=== PATIENT | female | born 1970 | race Caucasian/White ===

== ENCOUNTER 2016-09-17 06:14 | Day surgery (SDC) | payer OTHER ==
[~2016-09-17] VITALS: Ht 167.6 cm; Wt 99.4 kg
[~2016-09-17 06:14] MED LIST: AMITRIPTYLINE100 MG PO; AMLODIPINE BESY10 MG PO; CLONAZEPAM1 MG PO; GABAPENTIN600 MG PO; LISINOPRIL40 MG PO; PANTOPRAZOLE SO40 MG PO; PERCOCET1 TA1 PO; VENTOLIN HFA IN
--- NOTE | 2016-09-17 06:42 | NUR ---
PRE OP INSTRUCTIONS GIVEN AND SAFETY ISSUES DISCUSSED PT AND FAMILY HAD QUESTIONS ANSWERED PT CONFIRMED PROCEDURE PT VERIFIED SIGNATURE PT MARKED SITE PT VERY NERVIOUS
[2016-09-17] MEDS ORDERED: PERCOCET1 TA4 PO (09:51)
[2016-09-17] MEDS ORDERED: ZOFRAN4 MG PO (09:52)
--- NOTE | 2016-09-17 09:53 | Provider's Discharge Care Plan ---
Problem, Goal, Plan Problem List 1. Other instability, left ankle Goals: Improve function Instructions: Increase activity level
--- NOTE | 2016-09-17 09:53 | Provider's Discharge Care Plan ---
Problem, Goal, Plan Problem List 1. Other instability, left ankle Goals: Improve function Instructions: Increase activity level
--- NOTE | 2016-09-17 11:18 | NUR ---
PT RETURNED FROM PACU LEFT FOOT ELEVATED ICE TO FOOT DRESSING DRY AND INTACT CAP REFILL LESS THAN 3 SEC PT C/O DISCOMFORT CRACKERS GIVEN THEN PERCOCET
--- NOTE | 2016-09-17 12:06 | NUR ---
PT STATED PAIN LESS AFTER MED UP TO BR WITH USE OF WALKER. STATED DIDN'T WANT TO PUT ANY WEIGHT ON FOOT. PT VOIDED SPONTANOUSLY ASKING TO GO HOME REVIEWED DISCHARGE INSTRUCTIONS VERBAL AND WRITTEN PT AND NIECE EXPRESSED UNDERSTANDING PT RECITED BACK WHAT TO TO WITH DRESSING PT DISCHARGED PER WC ACCOMPANIED BY FATHER AND NIECE
[2016-09-17 12:42] VITALS: BP 153/93
== END 2016-09-17 12:09 | disposition home or self-care (01) ==
LOC: SCU SRH 06:14 → OR SRH 06:14
PROVIDERS: Podiatrist
PROC: 0LMT0ZZ Reattachment of Left Ankle Tendon, Open Approach (ICD-10-PCS; principal; 2016-09-17 07:30)
PROC: 0SBG4ZZ Excision of Left Ankle Joint, Percutaneous Endoscopic Approach (ICD-10-PCS; principal; 2016-09-17 07:30)
PROC: 0MUR0JZ Supplement Left Ankle Bursa and Ligament with Synthetic Substitute, Open Approach (ICD-10-PCS; principal; 2016-09-17 07:30)
DX: M25.372 Other instability, left ankle (principal); M24.472 Recurrent dislocation, left ankle; M65.872 Other synovitis and tenosynovitis, left ankle and foot; I10 Essential (primary) hypertension
CPT/HCPCS: 29229; 29240; 50002; 60001; 70002; 80144; 80212; 80360; 80575; 83316; 83322; 83420; 83612; 83860; 84038; 84522; 90074; 90100; 95059

== ENCOUNTER 2016-09-23 08:49 | Emergency (ER) | payer OTHER ==
[~2016-09-23 08:49] MED LIST changes: +PERCOCET1 TA4 PO; +ZOFRAN4 MG PO
--- NOTE | 2016-09-23 10:50 | ED ORDER SUMMARY ---
..... Patient: JOSE CARDOZA OrderSheet [facility] VisitID: [id number] [place] [address] 45y, F Registration Date/Time: 09/23/2016 ORDER SHEET Weight: 100.2 kg (stated) Allergies: Iodine, Penicillins, Tramadol GENERAL ORDERS: CBC w Diff Urgent (:09/23/2016 Rosalba Peters) (Ack 9:27 AMcQuoid ER Tech1) (10:32 AMcQuoid ER Tech1) CMP Urgent (:09/23/2016 Rosalba Peters) (Ack 9:27 AMcQuoid ER Tech1) (10:32 AMcQuoid ER Tech1) UA-Culture if indicated Urgent (09/23/2016 Rosalba Peters) (Ack 9:27 AMcQuoid ER Tech1) (10:32 AMcQuoid ER Tech1) D-Dimer Urgent (:09/23/2016 Rosalba Peters) (Ack 9:27 AMcQuoid ER Tech1) (10:32 AMcQuoid ER Tech1) Urine Urgent (:09/23/2016 Rosalba Peters) (Ack 9:27 AMcQuoid ER Tech1) (10:32 AMcQuoid ER Tech1) Urine Drug Screen Urgent (:09/23/2016 Rosalba Peters) (Ack 9:27 AMcQuoid ER Tech1) (10:32 AMcQuoid ER Tech1) MEDICATION ORDERS: IV FLUIDS: Toradol IV 30 mg (NOW) (:09/23/2016 Rosalba Peters) (Ack 9:34 Bhavik R.N.) (9:49 Bhavik R.N.) IV Saline Lock (09/23/2016 Rosalba Peters) (Ack 9:34 Bhavik R.N.) (9:49 Bhavik R.N.) ORDER SHEET NOTES: [Electronically signed by Shaheen Elias Dr. (11:59 09/23/2016)] [Electronically signed by Nadja Azul R.N. (22:58 09/24/2016)] [Electronically locked/signed by Nadja Azul R.N. (22:58 09/24/2016)]
--- NOTE | 2016-09-23 10:50 | ED NURSING NOTES ---
Clinical Report - Nurses [place] [address] [place] [address] 09/23/2016 8:51 [id number] Triage time 08:52. Acuity: LEVEL 3. Chief Complaint: INJURY TO LEFT ANKLE. Alert. No acute distress. VITOR COMA SCORE: [place] Coma Scale: 15- eyes open spontaneously (4); best verbal response- oriented x 4 (5); best motor response- obeys commands (6). --09:05 Julita Hoffmann R.N. 08:52 09/23/16. BP: 123/74. HR: 75. RR: 16. O2 saturation: 99% on room air. Temp: 98 F. Pain level now: 11/14. --09:05 Julita Hoffmann R.N. Weight: 100.2 kg stated. Height/Length: 66 inches Per Patient. BMI: 35.7. --08:57 Julita Hoffmann R.N. Medications Oxycodone-Acetaminophen Oral (Tablet 10-325 mg) 1 tablet, as needed. --09:00 Julita Hoffmann R.N. Ondansetron Oral (Tablet Dispersible 8 mg), as needed. --09:00 Julita Hoffmann R.N. Lisinopril Oral 40 mg, daily. --09:01 Julita Hoffmann R.N. AmLODIPine Besylate Oral 10 mg, daily. --09:01 Julita Hoffmann R.N. Amitriptyline HCl Oral 100 mg, at bedtime. --09:01 Julita Hoffmann R.N. ClonazePAM Oral 1 mg, daily. --09:02 Julita Hoffmann R.N. Gabapentin Oral (Tablet 600 mg) 4 tabs, daily. --09:02 Julita Hoffmann R.N. Pantoprazole Sodium Oral 40 mg, daily. --09:03 Julita Hoffmann R.N. Albuterol Sulfate HFA Inhalation, as needed. --09:04 Julita Hoffmann R.N. Medication/allergy information source: other. --09:05 Julita Hoffmann R.N. Allergies Iodine. Penicillins. Tramadol. --08:55 Julita Hoffmann R.N. History Arrived by EMS. Historian: patient. Unaccompanied. Primary physician (Adolph Og - surgeon). This occurred today (at 0000). ( recent surgery on that ankle , and fell "a couple" of days ago). ( non wt bearing). 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 PAST MEDICAL HX: The patient has had a hysterectomy. SOCIAL HX: Former smoker. History of drug use: marijuana. No alcohol use. LEARNING NEEDS ASSESSMENT: The learning needs assessment revealed no barriers. FALL RISK ASSESSMENT: Fall risk assessment completed. Risk factors identified include patient history of fall and impairment of mobility. FUNCTIONAL ASSESSMENT: Functional assessment performed: independent with the activities of daily living; uses cane. --09:05 Julita Hoffmann R.N. PROBLEMS: Sprain. Prior Injury, Same Area. Hypokalemia. Substance Abuse. Loss of Vision. Dental Pain. Uterine Cancer. Cervical CA. Heart Disease. Myofascial Strain. Pedal Edema. Immunizations. Chest Pain. Atypical Chest Pain. Mental Illness. Anxiety Reaction. Vertigo. Fall. Contusion. Back Pain. Tetanus Status. Hysterectomy. LNMP - Last Normal Menstrual Period. Multiple Sclerosis. TMJ Syndrome. Fibromyalgia. Congestive Heart Failure. Hypertension. Lupus. --08:56 Julita Hoffmann R.N. ADDITIONAL SURGERIES: Ankle, lt xxxx. Cholecystectomy. . Gallbladder Surgery. Hysterectomy. L ankle. Pyloric Stenosis Surgery. Tubal Ligation. --08:56 Julita Hoffmann R.N. Assessment GENERAL / NEURO / PSYCH: Alert. Oriented X 4. Appears in no acute distress. Patient appears calm and cooperative. RESPIRATORY: Respirations not labored. SKIN: Skin is warm and dry. --09:05 Julita Hoffmann R.N. Interventions ID and allergy band on patient. To treatment room. --09:05 Julita Hoffmann R.N. PHYSICAL ASSESSMENT 09:07 09/23/16. To room via stretcher. GENERAL / NEURO / PSYCH: Oriented X 4. Alert. Appears in no acute distress. EXTREMITIES: The patient was unable to bear weight. Left ankle: tenderness, swelling and erythema. SKIN: Skin is warm and dry. --09:07 Julita Hoffmann R.N. NURSING PROGRESS NOTES 09:08 09/23/16. Call light placed in reach. Side rails up x 1. Bed placed in lowest position. Brakes of bed on. --09:08 Julita Hoffmann R.N. 09:49 09/23/2016 Site #1 started via IV in the right hand with an 20g angiocath, with aseptic technique and good blood return; one attempt. Saline lock flushed with 10 mL saline. --09:49 Julita Hoffmann R.N. 09:49 09/23/2016 Toradol IVP 30 mg given over 2 minute(s) via site #1. Allergies verified and confirmed 5 rights. IV patency established. IV site checked: no pain, redness, or swelling. IV flushed thoroughly pre- and post-medication administration. IVP given by RN. --09:49 Julita Hoffmann R.N. 10:26. Checked patient name and birthdate: patient confirmed urine collected; sample sent to lab. Specimen labeled in the presence of the patient. --10:33 Brittany Mesa, ER Tech1 10:[address] Farfan per MD request. --10:35 Brittany Mesa, ER Tech1. DISPOSITION / DISCHARGE Departure time: 11:35 Sep 23 2016. Condition at departure: improved. Fall risk assessment completed. Risk factors identified include patient impairment of mobility. No learning barriers present. Discharge instructions provided and reviewed with the patient. Reviewed referral to an orthopedic surgeon for followup. Patient verbalized understanding. Written instructions provided in Bengali. The patient was discharged home. She left the Emergency Department ambulatory and via private vehicle. Driving ([employer] link). --11:35 Nadja Azul R.N. Locked/Released at 09/24/2016 22:58 by Nadja Azul R.N.
--- NOTE | 2016-09-23 10:50 | ED ORDER SUMMARY ---
..... Patient: JOSE CARDOZA OrderSheet [facility] VisitID: [id number] [place] [address] 45y, F Registration Date/Time: 09/23/2016 ORDER SHEET Weight: 100.2 kg (stated) Allergies: Iodine, Penicillins, Tramadol GENERAL ORDERS: CBC w Diff Urgent (:09/23/2016 Rosalba Peters) (Ack 9:27 AMcQuoid ER Tech1) (10:32 AMcQuoid ER Tech1) CMP Urgent (:09/23/2016 Rosalba Peters) (Ack 9:27 AMcQuoid ER Tech1) (10:32 AMcQuoid ER Tech1) UA-Culture if indicated Urgent (09/23/2016 Rosalba Peters) (Ack 9:27 AMcQuoid ER Tech1) (10:32 AMcQuoid ER Tech1) D-Dimer Urgent (:09/23/2016 Rosalba Peters) (Ack 9:27 AMcQuoid ER Tech1) (10:32 AMcQuoid ER Tech1) Urine Urgent (:09/23/2016 Rosalba Peters) (Ack 9:27 AMcQuoid ER Tech1) (10:32 AMcQuoid ER Tech1) Urine Drug Screen Urgent (:09/23/2016 Rosalba Peters) (Ack 9:27 AMcQuoid ER Tech1) (10:32 AMcQuoid ER Tech1) MEDICATION ORDERS: IV FLUIDS: Toradol IV 30 mg (NOW) (:09/23/2016 Rosalba Peters) (Ack 9:34 Bhavik R.N.) (9:49 Bhavik R.N.) IV Saline Lock (09/23/2016 Rosalba Peters) (Ack 9:34 Bhavik R.N.) (9:49 Bhavik R.N.) ORDER SHEET NOTES: [Electronically signed by Shaheen Elias Dr. (11:59 09/23/2016)] [Electronically signed by Nadja Azul R.N. (22:58 09/24/2016)] [Electronically locked/signed by Nadja Azul R.N. (22:58 09/24/2016)]
--- NOTE | 2016-09-23 10:50 | ED CLINICAL REPORT ---
Clinical Report - Physicians/Mid Levels [facility] [address] [place] [address] 09/23/2016 8:51 Patient: JOSE CARDOZA Time Seen: 09:05; initial patient contact. Arrived- By ambulance. Historian- patient. HISTORY OF PRESENT ILLNESS Chief Complaint: Injury to the left ankle. The injury happened last night. (post op from L ankle Ssurgery 3 days ago. Supposed to be non-wt bearing and put weight on the L foot last night.). Occurred at home. Patient is experiencing moderate pain. Patient denies injury to the head or neck. REVIEW OF SYSTEMS The patient complains of pain on weight bearing. She has had swelling. No tingling, weakness, numbness, suspected foreign body or skin laceration. No chest pain or palpitations. She has had calf pain and pedal edema. All systems otherwise negative, except as recorded above. PAST HISTORY Sprain. Prior Injury, Same Area. Hypokalemia. Substance Abuse. Loss of Vision. Dental Pain. Uterine Cancer. Cervical CA. Heart Disease. Myofascial Strain. Pedal Edema. Immunizations. Chest Pain. Atypical Chest Pain. Mental Illness. Anxiety Reaction. Vertigo. Fall. Contusion. Back Pain. Hysterectomy. Multiple Sclerosis. TMJ Syndrome. Fibromyalgia. Congestive Heart Failure. Hypertension. Lupus. SURGERIES: Ankle, lt Cholecystectomy. . Gallbladder Surgery. Hysterectomy. L ankle. Pyloric Stenosis Surgery. Tubal Ligation. Medications: Albuterol Sulfate HFA Inhalation, as needed. Pantoprazole Sodium Oral 40 mg, daily. Gabapentin Oral (Tablet 600 mg) 4 tabs, daily. ClonazePAM Oral 1 mg, daily. Amitriptyline HCl Oral 100 mg, at bedtime. AmLODIPine Besylate Oral 10 mg, daily. Lisinopril Oral 40 mg, daily. Ondansetron Oral (Tablet Dispersible 8 mg), as needed. Oxycodone-Acetaminophen Oral (Tablet 10-325 mg) 1 tablet, as needed. Allergies: Iodine. Penicillins. Tramadol. SOCIAL HISTORY Former smoker. History of drug use: marijuana. No alcohol use. ADDITIONAL NOTES The nursing notes have been reviewed. PHYSICAL EXAM Vital Signs: 09/23/2016 08:52 BP: 123/74. HR: 75. RR: 16. O2 saturation: 99%. Temp: 98 F. Pain level now: 10. Have been reviewed as normal. Appearance: Alert. Oriented X3. No acute distress. Skin: Skin warm and dry. Extremities: Left ankle: mild erythema and swelling, moderate tenderness and small ecchymosis localized to the lateral ligaments. Limited ROM secondary to pain (diminished plantar flexion, dorsiflexion, inversion and eversion). Neurovascular intact distally. (surgical wounds intact w/out discharge or erythema.). No deformity. Extremities otherwise negative. Gait: Gait not tested due to pain. Neuro, Vascular and Tendons: Vascular status intact. Sensation intact. Motor intact. Neuro: Oriented X 3. No motor deficit. No sensory deficit. PROGRESS AND PROCEDURES Discussed case with patient's primary care provider, (call returned 10:35 Dr. Lundberg. Ruled out DVT and infection and he agrees nothing else to do and has the same concerns for drug seeking. Also agrees no imaging necessary.). Disposition: Discharged home in good and improved condition. Condition: good. CLINICAL IMPRESSION (Post operative ankle pain: Primary Dx). INSTRUCTIONS Apply ice for 20 minutes four times a day until better. Don't apply ice directly to skin. Wear boot orthosis until released. Elevate affected areas above chest level until released. No weight bearing left leg until released. Prescription Medications: Diclofenac 50 mg tablets: take 1 tablet orally every 8 hours as needed for pain or stiffness. Dispense fifteen (15). No refill. Follow-up: Follow up with your doctor as scheduled. Blood pressure screening was not performed during this visit because the patient has an active diagnosis of hypertension. (Electronically signed by Shaheen Elias Dr. 09/23/2016 11:59)
--- NOTE | 2016-09-23 10:50 | ED NURSING NOTES ---
Clinical Report - Nurses [address] [address] [place] [address] 09/23/2016 8:51 [id number] TRI[facility] Triage time 08:52. Acuity: LEVEL 3. Chief Complaint: INJURY TO LEFT ANKLE. Alert. No acute distress. VITOR COMA SCORE: [place] Coma Scale: 15- eyes open spontaneously (4); best verbal response- oriented x 4 (5); best motor response- obeys commands (6). --09:05 Julita Hoffmann R.N. 08:52 09/23/16. BP: 123/74. HR: 75. RR: 16. O2 saturation: 99% on room air. Temp: 98 F. Pain level now: 11/14. --09:05 Julita Hoffmann R.N. Weight: 100.2 kg stated. Height/Length: 66 inches Per Patient. BMI: 35.7. --08:57 Julita Hoffmann R.N. Medications Oxycodone-Acetaminophen Oral (Tablet 10-325 mg) 1 tablet, as needed. --09:00 Julita Hoffmann R.N. Ondansetron Oral (Tablet Dispersible 8 mg), as needed. --09:00 Julita Hoffmann R.N. Lisinopril Oral 40 mg, daily. --09:01 Julita Hoffmann R.N. AmLODIPine Besylate Oral 10 mg, daily. --09:01 Julita Hoffmann R.N. Amitriptyline HCl Oral 100 mg, at bedtime. --09:01 Julita Hoffmann R.N. ClonazePAM Oral 1 mg, daily. --09:02 Julita Hoffmann R.N. Gabapentin Oral (Tablet 600 mg) 4 tabs, daily. --09:02 Julita Hoffmann R.N. Pantoprazole Sodium Oral 40 mg, daily. --09:03 Julita Hoffmann R.N. Albuterol Sulfate HFA Inhalation, as needed. --09:04 Julita Hoffmann R.N. Medication/allergy information source: other. --09:05 Julita Hoffmann R.N. Allergies Iodine. Penicillins. Tramadol. --08:55 Julita Hoffmann R.N. History Arrived by EMS. Historian: patient. Unaccompanied. Primary physician (Adolph Og - surgeon). This occurred today (at 0000). ( recent surgery on that ankle , and fell "a couple" of days ago). ( non wt bearing). Treatment BELL RINGER: See EMS report. PAST MEDICAL HX: The patient has had a hysterectomy. SOCIAL HX: Former smoker. History of drug use: marijuana. No alcohol use. LEARNING NEEDS ASSESSMENT: The learning needs assessment revealed no barriers. FALL RISK ASSESSMENT: Fall risk assessment completed. Risk factors identified include patient history of fall and impairment of mobility. FUNCTIONAL ASSESSMENT: Functional assessment performed: independent with the activities of daily living; uses cane. --09:05 Julita Hoffmann R.N. PROBLEMS: Sprain. Prior Injury, Same Area. Hypokalemia. Substance Abuse. Loss of Vision. Dental Pain. Uterine Cancer. Cervical CA. Heart Disease. Myofascial Strain. Pedal Edema. Immunizations. Chest Pain. Atypical Chest Pain. Mental Illness. Anxiety Reaction. Vertigo. Fall. Contusion. Back Pain. Tetanus Status. Hysterectomy. LNMP - Last Normal Menstrual Period. Multiple Sclerosis. TMJ Syndrome. Fibromyalgia. Congestive Heart Failure. Hypertension. Lupus. --08:56 Julita Hoffmann R.N. ADDITIONAL SURGERIES: Ankle, lt xxxx. Cholecystectomy. . Gallbladder Surgery. Hysterectomy. L ankle. Pyloric Stenosis Surgery. Tubal Ligation. --08:56 Julita Hoffmann R.N. Assessment GENERAL / NEURO / PSYCH: Alert. Oriented X 4. Appears in no acute distress. Patient appears calm and cooperative. RESPIRATORY: Respirations not labored. SKIN: Skin is warm and dry. --09:05 Julita Hoffmann R.N. Interventions ID and allergy band on patient. To treatment room. --09:05 Julita Hoffmann R.N. PHYSICAL ASSESSMENT 09:07 09/23/16. To room via stretcher. GENERAL / NEURO / PSYCH: Oriented X 4. Alert. Appears in no acute distress. EXTREMITIES: The patient was unable to bear weight. Left ankle: tenderness, swelling and erythema. SKIN: Skin is warm and dry. --09:07 Julita Hoffmann R.N. NURSING PROGRESS NOTES 09:08 09/23/16. Call light placed in reach. Side rails up x 1. Bed placed in lowest position. Brakes of bed on. --09:08 Julita Hoffmann R.N. 09:49 09/23/2016 Site #1 started via IV in the right hand with an 20g angiocath, with aseptic technique and good blood return; one attempt. Saline lock flushed with 10 mL saline. --09:49 Julita Hoffmann R.N. 09:49 09/23/2016 Toradol IVP 30 mg given over 2 minute(s) via site #1. Allergies verified and confirmed 5 rights. IV patency established. IV site checked: no pain, redness, or swelling. IV flushed thoroughly pre- and post-medication administration. IVP given by RN. --09:49 Julita Hoffmann R.N. 10:26. Checked patient name and birthdate: patient confirmed urine collected; sample sent to lab. Specimen labeled in the presence of the patient. --10:33 Brittany Mesa, ER Tech1 10:[address] Farfan per MD request. --10:35 Brittany Mesa, ER Tech1. DISPOSITION / DISCHARGE Departure time: 11:35 Sep 23 2016. Condition at departure: improved. Fall risk assessment completed. Risk factors identified include patient impairment of mobility. No learning barriers present. Discharge instructions provided and reviewed with the patient. Reviewed referral to an orthopedic surgeon for followup. Patient verbalized understanding. Written instructions provided in Maori. The patient was discharged home. She left the Emergency Department ambulatory and via private vehicle. Driving ([employer] link). --11:35 Nadja Azul R.N. Locked/Released at 09/24/2016 22:58 by Nadja Azul R.N.
--- NOTE | 2016-09-24 22:59 | ED MAR SUMMARY ---
..... Medication Administration Record [facility] [address] [place] [address] Patient: JOSE CARDOZA Visit ID: [id number] 45y, F Weight: 100.2 kg Height/Length: 66 in BMI: 35.7 ALLERGIES: Iodine, Penicillins, Tramadol Given 09:49 09/23/2016 Julita Hoffmann RMarthaNMartha Medication Administered: TORADOL [IVP], Dose: 30 mg IVP over 2 minute(s), Site: #1 right hand. Medication Ordered: Toradol IV 30 mg (NOW).
--- NOTE | 2016-09-24 22:59 | ED MED RECONCILIATION SUMMARY ---
Patient: JOSE CARDOZA Medication Reconciliation Report [facility] VisitID: [id number] [address] [place] [address] 45y, F Registration Date/Time: 09/23/2016 Weight: 100.2 kg Height/Length: 66 in. BMI: 35.7 ALLERGIES: Iodine, Penicillins, Tramadol The patient's Home Medications are listed below: THE FOLLOWING MEDICATIONS NEED TO BE RECONCILED: Albuterol Sulfate HFA Inhalation Amitriptyline HCl Oral 100 mg, at bedtime AmLODIPine Besylate Oral 10 mg, daily ClonazePAM Oral 1 mg, daily Gabapentin Oral (600 mg) 4 tabs, daily Lisinopril Oral 40 mg, daily Ondansetron Oral (8 mg) Oxycodone-Acetaminophen Oral (10-325 mg) 1 tablet Pantoprazole Sodium Oral 40 mg, daily The source(s) of the original Home Medication information: other The following Medications were given to the patient in the Emergency Department: Toradol [IVP] IVP 30 mg, administered: 09/23/2016 9:49:00 AM The following Medications were prescribed to the patient: Diclofenac 50 mg tablets: take 1 tablet orally every 8 hours as needed for pain or stiffness. Dispense fifteen (15). No refill. -- Shaheen Elias Dr.
--- NOTE | 2016-09-24 22:59 | ED DISCHARGE INSTRUCTIONS ---
Patient: JOSE CARDOZA General Instructions [facility] VisitID: [id number] [place] [address] 45y, F Registration Date/Time: 09/23/2016 (Post operative ankle pain: Primary Dx). INSTRUCTIONS Apply ice for 20 minutes four times a day until better. Don't apply ice directly to skin. Wear boot orthosis until released. Elevate affected areas above chest level until released. No weight bearing left leg until released. Prescription Medications: Diclofenac 50 mg tablets: take 1 tablet orally every 8 hours as needed for pain or stiffness. Dispense fifteen (15). No refill. Follow-up: Follow up with your doctor as scheduled. Blood pressure screening was not performed during this visit because the patient has an active diagnosis of hypertension. No weight bearing left leg until released. (Electronically signed by Shaheen Elias Dr. 09/23/2016 11:59)
--- NOTE | 2016-09-24 22:59 | ED MAR SUMMARY ---
..... Medication Administration Record [facility] [address] [place] [address] Patient: JOSE CARDOZA Visit ID: [id number] 45y, F Weight: 100.2 kg Height/Length: 66 in BMI: 35.7 ALLERGIES: Iodine, Penicillins, Tramadol Given 09:49 09/23/2016 Julita Hoffmann RMarthaNMartha Medication Administered: TORADOL [IVP], Dose: 30 mg IVP over 2 minute(s), Site: #1 right hand. Medication Ordered: Toradol IV 30 mg (NOW).
--- NOTE | 2016-09-24 22:59 | ED MED RECONCILIATION SUMMARY ---
Patient: JOSE CARDOZA Medication Reconciliation Report [facility] VisitID: [id number] [address] [place] [address] 45y, F Registration Date/Time: 09/23/2016 Weight: 100.2 kg Height/Length: 66 in. BMI: 35.7 ALLERGIES: Iodine, Penicillins, Tramadol The patient's Home Medications are listed below: THE FOLLOWING MEDICATIONS NEED TO BE RECONCILED: Albuterol Sulfate HFA Inhalation Amitriptyline HCl Oral 100 mg, at bedtime AmLODIPine Besylate Oral 10 mg, daily ClonazePAM Oral 1 mg, daily Gabapentin Oral (600 mg) 4 tabs, daily Lisinopril Oral 40 mg, daily Ondansetron Oral (8 mg) Oxycodone-Acetaminophen Oral (10-325 mg) 1 tablet Pantoprazole Sodium Oral 40 mg, daily The source(s) of the original Home Medication information: other The following Medications were given to the patient in the Emergency Department: Toradol [IVP] IVP 30 mg, administered: 09/23/2016 9:49:00 AM The following Medications were prescribed to the patient: Diclofenac 50 mg tablets: take 1 tablet orally every 8 hours as needed for pain or stiffness. Dispense fifteen (15). No refill. -- Shaheen Elias Dr.
--- NOTE | 2016-09-24 22:59 | ED DISCHARGE INSTRUCTIONS ---
Patient: JOSE CARDOZA General Instructions [facility] VisitID: [id number] [place] [address] 45y, F Registration Date/Time: 09/23/2016 (Post operative ankle pain: Primary Dx). INSTRUCTIONS Apply ice for 20 minutes four times a day until better. Don't apply ice directly to skin. Wear boot orthosis until released. Elevate affected areas above chest level until released. No weight bearing left leg until released. Prescription Medications: Diclofenac 50 mg tablets: take 1 tablet orally every 8 hours as needed for pain or stiffness. Dispense fifteen (15). No refill. Follow-up: Follow up with your doctor as scheduled. Blood pressure screening was not performed during this visit because the patient has an active diagnosis of hypertension. No weight bearing left leg until released. (Electronically signed by Shaheen Elias Dr. 09/23/2016 11:59)
== END 2016-09-23 11:10 | disposition home or self-care (01) ==
LOC: ED SRH 08:49
DX: G89.18 Other acute postprocedural pain (principal); M25.572 Pain in left ankle and joints of left foot; I11.0 Hypertensive heart disease with heart failure; I50.9 Heart failure, unspecified; G35 Multiple sclerosis; Z79.899 Other long term (current) drug therapy; Z87.891 Personal history of nicotine dependence; Z88.5 Allergy status to narcotic agent; Z91.09 Other allergy status, other than to drugs and biological substances; Z88.0 Allergy status to penicillin
CPT/HCPCS: 90004; 90074; 90100; 91556; 92760; 92761; 92762; 92763; 92764; 92765; 92766; 92767; 93070; 95059